=== PATIENT | female | born 1970 | race Caucasian/White ===

== ENCOUNTER 2017-06-02 14:21 | Observation (INO) | payer BC ==
[~2017-06-02] VITALS: Ht 165.1 cm; Wt 101.6 kg
[~2017-06-02 14:21] MED LIST: NAPROXEN500 MG PO; ROBITUSSIN AC10 ML PO; ZITHROMAX250 MG PO
[2017-06-02 15:00] LABS: HEMATOCRIT 33.8 % (37.0-47.0); HEMOGLOBIN 10.8 g/dl (12.0-16.0); IMMATURE GRANULOCYTES 0.2 % (0.0-1.0); MEAN CELL VOLUME 81.6 fL CALC (80.0-100.0); MEAN CORPUSCULAR HGB 26.1 pG CALC (26.0-32.0); NEUT# 2.4 thou/uL (2.00-7.15); RED BLOOD COUNT 4.14 mill/uL (4.20-5.60); RED CELL DISTRI WIDTH 13.7 % (11.5-15.5)
[2017-06-02 15:16] LABS: ALBUMIN 4.3 g/dL (3.2-5.0); ALKALINE PHOSPHATASE 94 u/l (38-126); ANION GAP 13 (6-22 (CALC)); BILIRUBIN, TOTAL 0.4 mg/dL (0.0-1.4); BUN 16 mg/dL (7-17); BUN/CREATININE RATIO 19 (12-20 (CALC)); CALCIUM 9.2 mg/dL (8.4-10.2); CARBON DIOXIDE 27 mmol/l (22-30); CHLORIDE 106 mmol/l (95-108); CREATININE 0.8 mg/dL (0.5-1.0); GFR > 60 ML/MIN (>=60 (CALC)); GFR FOR AFR.AMER. > 60 ML/MIN (>=60 (CALC)); GLUCOSE 87 mg/dL (65-105); POTASSIUM 3.9 mmol/l (3.5-5.1); SGOT/AST 18 u/l (14-36); SGPT/ALT 31 u/l (9-52); SODIUM 141 mmol/l (137-146); TOTAL PROTEIN 7.4 g/dL (6.3-8.2)
[2017-06-02 15:26] LABS: MYOGLOBIN 26 ng/mL (0 - 62)
[2017-06-02 16:40] VITALS: BP 108/64
[2017-06-02 18:50] VITALS: BP 106/68
[2017-06-02 23:55] VITALS: BP 123/62
[2017-06-03 04:10] VITALS: BP 125/70
[2017-06-03 05:52] LABS: CHOLESTEROL HDL RATIO 4.1 (<4.4 (CALC))
[2017-06-03] MEDS ORDERED: ASPIRIN ADULT L81 M2 PO (10:50)
== END 2017-06-03 11:23 | disposition home or self-care (01) | DRG 313 ==
LOC: ED 14:21 → ED-I 15:18 → ED 15:29 → MS2 15:30
PROVIDERS: Emergency Medicine; ADMIT Internal Medicine; ATTEND Internal Medicine
DX: R07.89 Other chest pain (principal); N95.1 Menopausal and female climacteric states
CPT/HCPCS: G0378

== ENCOUNTER → 2018-11-01 | Outpatient (REF) | payer BC ==
[~2018-11-01] MED LIST changes: +ASPIRIN ADULT L81 M2 PO
== END | disposition home or self-care (01) | DRG 951 ==
LOC: MAMMO 14:21
PROVIDERS: ATTEND Obstetrics & Gynecology
DX: Z12.31 Encounter for screening mammogram for malignant neoplasm of breast (principal)

== ENCOUNTER 2019-05-23 13:47 | Emergency (ER) | payer BC ==
[~2019-05-23] VITALS: Ht 165.1 cm; Wt 100.0 kg
[2019-05-23 15:31] VITALS: BP 124/84
== END 2019-05-23 15:35 | disposition home or self-care (01) | DRG 605 ==
LOC: ED 13:47
DX: S00.03XA Contusion of scalp, initial encounter (principal); M54.2 Cervicalgia; S05.11XA Contusion of eyeball and orbital tissues, right eye, initial encounter; S05.12XA Contusion of eyeball and orbital tissues, left eye, initial encounter; W20.8XXA Other cause of strike by thrown, projected or falling object, initial encounter; Y93.89 Activity, other specified; Y92.007 Garden or yard of unspecified non-institutional (private) residence as the place of occurrence of the external cause

== ENCOUNTER 2022-11-11 19:51 | Emergency (ER) | payer BC ==
[~2022-11-11] VITALS: Ht 165.1 cm; Wt 98.8 kg
[2022-11-11 21:32] LABS: BASO% 0.8 % (0-3); EOS% 1.1 % (0-8); IMMATURE GRANULOCYTES 0.3 % (0.0-5.0); LYMPH% 30.6 % (15-41); MEAN CORPUSCULAR HGB 29.6 pG CALC (26.0-32.0); MEAN CORPUSCULAR HGB CONC 33.3 g/dL CAL (32.0-36.0); MONO% 9.1 % (2-13); NEUT# 3.59 thou/uL (2.00-7.15); NEUT% 58.1 % (42-76); RED BLOOD COUNT 4.67 mill/uL (4.20-5.60); RED CELL DISTRI WIDTH 12.5 % (11.5-15.5)
[2022-11-11 21:34] LABS: HEMATOCRIT 41.4 % (37.0-47.0); HEMOGLOBIN 13.8 g/dl (12.0-16.0); MEAN CELL VOLUME 88.7 fL CALC (80.0-100.0)
[2022-11-11 21:43] LABS: ALBUMIN 4.8 g/dL (3.2-5.0); ALKALINE PHOSPHATASE 87 u/l (38-126); ANION GAP 11 (6-22 (CALC)); BILIRUBIN, TOTAL 0.3 mg/dL (0.02-1.3); BUN 17 mg/dL (7-17); BUN/CREATININE RATIO 22 (12-20 (CALC)); CARBON DIOXIDE 27 mmol/l (22-30); CHLORIDE 106 mmol/l (95-108); CREATININE 0.8 mg/dL (0.5-1.0); GFR FOR AFR.AMER. > 60 ML/MIN (>=60 (CALC)); GFR OTHER RACES > 60 ML/MIN (>=60 (CALC)); LIPASE 35 u/l (23-300); POTASSIUM 3.8 mmol/l (3.5-5.1); SGOT/AST 22 u/l (14-36); SODIUM 140 mmol/l (137-146); TOTAL PROTEIN 7.7 g/dL (6.3-8.2)
[2022-11-11 23:49] LABS: URINE BILIRUBIN - DIPSTICK NEGATIVE (NEGATIVE); URINE BLOOD DIPSTICK TRACE-LYSED (NEGATIVE); URINE COLOR YELLOW; URINE GLUCOSE - DIPSTICK NEGATIVE (NEGATIVE); URINE KETONE NEGATIVE (NEGATIVE); URINE LEUK ESTERASE NEGATIVE (NEGATIVE); URINE PROTEIN - DIPSTICK NEGATIVE (NEG-TRACE); URINE UROBILINOGEN - DIPSTICK 0.2 E.U./dL (0.2)
[2022-11-12 00:02] LABS: URINE NITRITE - DIPSTICK NEGATIVE (Negative)
[2022-11-12 00:19] VITALS: BP 137/69
== END 2022-11-12 00:21 | disposition home or self-care (01) | DRG 392 ==
LOC: ED 19:51
PROVIDERS: Family Medicine
DX: R10.11 Right upper quadrant pain (principal)
CPT/HCPCS: Q9967